=== PATIENT | female | born 1970 | race Caucasian/White ===

== ENCOUNTER 2019-03-03 01:56 | Emergency (ER) | payer OTHER ==
[~2019-03-03] VITALS: Ht 157.5 cm; Wt 84.9 kg
[2019-03-03 02:01] VITALS: BP 125/71; PULSE 74; RESP 19; Ht 157.5 cm; Wt 84.9 kg
== END 2019-03-03 03:55 | disposition left against medical advice (07) ==
LOC: FTE 01:56
DX: Z53.21 Procedure and treatment not carried out due to patient leaving prior to being seen by health care provider (principal)